=== PATIENT | male | born 1990 | race American Indian/Alaskan Native ===

== ENCOUNTER 2018-09-07 20:09 | Emergency (ER) | payer SELFPAY ==
[2018-09-07 20:14] VITALS: BP 135/92
--- NOTE | 2018-09-09 16:32 | Emergency Department Report ---
Blank Doc - Documentation Documentation: Patient left the hospital before being seen by a provider
== END 2018-09-07 23:40 | disposition left against medical advice (07) ==
LOC: ED 20:09
DX: N48.89 Other specified disorders of penis (principal); Z53.21 Procedure and treatment not carried out due to patient leaving prior to being seen by health care provider